=== PATIENT | female | born 1950 | race Caucasian/White ===

== ENCOUNTER 2016-09-02 17:27 | Emergency (ER) | payer OTHER ==
[~2016-09-02] VITALS: Ht 162.6 cm; Wt 44.5 kg
--- NOTE | 2016-09-02 18:00 | ED GI/GU/ABDOMINAL COMPLAINT ---
See Addendum History of Present Illness General Chief Complaint: Abdominal Pain/Flank Pain Stated Complaint: SENT FROM URGENT FOR EVALOF RT FLNAK PAIN Source: patient, URGENT CARE Exam Limitations: no limitations Vital Signs & Intake/Output Vital Signs & Intake/Output Vital Signs Date Time Temp Pulse Resp B/P Pulse O2 O2 Flow FiO2 Ox Delivery Rate 09/022 98.7 90 18 117/56 96 Room Air 09/02 1847 Room Air Room Air 09/02 1752 99.8 88 22 122/58 93 Room Air Allergies Coded Allergies: NO KNOWN ALLERGIES (09/02/16) Reconcile Medications Calcium Carbonate/Vitamin D3 (Calcium 500 + D Tablet) (Unknown Strength) TABLET (Unknown Dose) PO BID SUPPLEMENT (Reported) Multivitamin (Multi-Day Vitamins) 1 EACH TABLET 1 TAB PO DAILY SUPPLEMENT ( Reported) Triage Nurses Notes Reviewed? yes ? N Is pt currently ? No Onset: Abrupt Duration: day(s): (6) Timing: recent history Severity Numbers: 10 Location: RIGHT FLANK Associated Symptoms: DRY COUGH, WEIGHT LOSS HPI: This is a 66-year-old female presents from urgent care center for chief complaint of possible pneumonia. Patient states she's not been feeling well for the past one week with a dry nonproductive cough. Also complains of right flank pain worse with movement and palpation. Denies any productive sputum fever or chills. Denies any sick contacts. She states she has not been eating or drinking because she doesn't feel well. Patient appears very cachectic states she has lost about 8 pounds in the last 1 week. She has no primary care doctor. They sent her in from the urgent care with the x-ray done which showed possible pneumonia however they couldn't exclude underlying mass. (RHONDA RIZVI MD) Past History Travel History Traveled to [place] past 21 day No Medical History Any Pertinent Medical History? none Surgical History Surgical History: non-contributory Psychosocial History What is your primary language [place] Family History Hx Contributory? No (RHONDA RIZVI MD) Review of Systems Review of Systems Constitutional: Reports: malaise, weakness, unexplained weight loss. Denies: chills, fever. EENTM: Reports: no symptoms. Respiratory: Reports: cough, sputum production. Denies: short of breath. Cardiovascular: Reports: chest pain. GI: Reports: see HPI (FLANK PAIN). Genitourinary: Reports: no symptoms. Musculoskeletal: Reports: no symptoms. Skin: Reports: no symptoms. Neurological/Psychological: Reports: no symptoms. Hematologic/Endocrine: Denies: bruising, bleeding, polyuria, polydipsia. Immunologic/Allergic: Denies: splenectomy. All Other Systems: Reviewed and Negative (RHONDA RIZVI MD) Physical Exam Physical Exam General Appearance: alert, awake, cachetic, thin Head: atraumatic, normal appearance Eyes: Bilateral: other (SUNKEN EYES). Ears, Nose, Throat, Mouth: hearing grossly normal, DRY MUCUS MEMBRANES Neck: normal inspection, supple, full range of motion Respiratory: normal breath sounds, decreased breath sounds (RIGHT BASE) Cardiovascular: regular rate/rhythm Peripheral Pulses: 2+ radial (R), 2+ radial (L) Gastrointestinal: soft, non-tender Extremities: normal range of motion Neurologic/Psych: no motor/sensory deficits, awake, alert, oriented x 3, normal gait, normal mood/affect Skin: intact, normal color, warm/dry Core Measures ACS in differential dx? No Severe Sepsis Present: No Septic Shock Present: No (RHONDA RIZVI MD) Progress Differential Diagnosis: PNA, LUNG MASS, PE Plan of Care: Orders Procedure Date/time Status EKG 09/03 0500 Active TROPONIN LEVEL 09/03 0005 Active BASIC METABOLIC PANEL 09/03 0005 Active BLOOD CULTURE 09/02 175 Active URINALYSIS 09/02 175 Complete THYROID STIMULATING HORMONE 09/02 175 Complete MAGNESIUM 09/02 175 Complete LACTIC ACID 09/02 175 Complete FREE T4 09/02 175 Complete D-DIMER 09/02 175 Complete COMPREHENSIVE METABOLIC PANEL 09/02 175 Complete CBC WITHOUT DIFFERENTIAL 09/02 1757 Complete EKG 09/02 175 Active Laboratory Tests 09/02/16 2310: Urine Color YEL, Urine Clarity CLEAR, Urine pH 6.5, Ur Specific Foster <= 1.005 , Urine Protein 100 H, Urine Ketones 40 H, Urine Nitrite POS H, Urine Bilirubin NEG, Urine Urobilinogen 2.0 H, Ur Leukocyte Esterase NEG, Ur Microscopic SEDIMENT EXAMINED, Urine RBC 1-3, Urine WBC 1-3 H, Ur Epithelial Cells RARE, Urine Hemoglobin MOD H, Urine Glucose NEG 09/02/162057: Lactic Acid Cancelled 09/02/16 1818: Anion Gap 13, Estimated GFR > 60, BUN/Creatinine Ratio 25.0, Glucose 112 H, Lactic Acid 1.4, Calcium 8.0 L, Magnesium 2.1, Total Bilirubin 1.4 H, AST 41 H, ALT 54 H, Alkaline Phosphatase 131 H, Total Protein 6.2 L, Albumin 3.1 L, Globulin 3.1, Albumin/Globulin Ratio 1.0 L, TSH 0.714, Free T4 1.42, D-Dimer 833 H, CBC w Diff NO MAN DIFF REQ, RBC 4.18 L, MCV 83.7, MCH 27.9, RDW 15.4 H , MPV 7.2 L, Gran % 97.2 H, Lymphocytes % 1.7 L, Monocytes % 1.0 L, Eosinophils % 0.1, Basophils % 0 L, Absolute Granulocytes 9.7 H, Absolute Lymphocytes 0.2 L, Absolute Monocytes 0.1 L, Absolute Eosinophils 0, Absolute Basophils 0, PUBS MCHC 33.3 Microbiology 09/02 1826 BLOOD: Blood Culture - RECD 09/02 1817 BLOOD: Blood Culture - RECD Diagnostic Imaging: Viewed by Me: CT Scan. Discussed w/RAD: CT Scan. Initial ED EKG: NSR Hand-Off Endorsed To: BRANT LILLY,SRIKANTH Abad Endorsed Time: 1899 Pending: CT (BELKYS LILLY,RHONDA) Radiology Impression: CHEST ANGIO/ABD-PELVIC W/IV CONTRAST... NO pe... PNEUMONIA NOTED... GALL STONE W/O INFLAMMATION... FULL REPORT BELOW. Comments: PATIENT: AMALIA SALDANA PRESENT AGE: 66 PATIENT ACCOUNT NO: [id number] : 48 LOCATION: [facility] ORDERING PHYSICIAN: RHONDA RIZVI MD SERVICE DATE: 09/02/16 EXAM TYPE: CAT - CT ABD & PELVIS W IV CONTRAST; CTA CHEST-PULMONARY EMBOLISM EXAMINATION: CTA CHEST PE STUDY CLINICAL INFORMATION: RIGHT SIDED PLEURITIC PAIN, weight loss and cachexia COMPARISON: No pertinent prior studies are available for comparison. TECHNIQUE: Prior to contrast administration, noncontrast localization images through the chest were obtained. After the administration of 125 mL of Optiray 350 nonionic IV contrast, contiguous thin slice helical images were obtained through the thorax. Reformatted MIP images in the coronal and sagittal planes were obtained at the acquisition workstation. Additional multidetector volumetric imaging was performed from the superior aspect of the liver through the pubic symphysis. Sagittal and coronal reformatted images were obtained on the technologist workstation. DLP: 396 mGy-cm. FINDINGS: CHEST: The bolus timing on this study was acceptable for visualization of the pulmonary arterial tree. There are no intraluminal pulmonary arterial filling defects present to suggest pulmonary embolism. Dense airspace consolidation is seen in the bilateral lung bases right more so than left. Diffuse air bronchograms are noted. There is a prominent subcarinal lymph node measuring up to 2.2 cm in diameter. No bulky hilar adenopathy though there is bilateral hilar prominence. The heart is normal in size. Vascular calcification seen in the coronary arteries. Tiny pericardial effusion noted. LIVER, GALLBLADDER, AND BILIARY TREE: Tiny low attenuation probable cyst in segment 6 of the liver. Otherwise the liver is normal in size, shape, and attenuation. No suspicious focal hepatic lesion or biliary ductal dilatation is present. Probable gallstone in the dependent portion of the otherwise unremarkable gallbladder. PANCREAS: Atrophic but otherwise unremarkable. SPLEEN: Unremarkable. ADRENAL GLANDS: Unremarkable. KIDNEYS AND URETERS: Tiny subcentimeter low-attenuation probable cortical cysts are incidentally noted bilaterally. Otherwise the kidneys are normal in size, shape, and attenuation. No hydronephrosis, hydroureter, or calculi seen. No perinephric stranding. BLADDER: Unremarkable. GASTROINTESTINAL TRACT: Evaluation the bowel is difficult due to the lack of significant intra-abdominal fat. There is scattered diverticulosis. I do not appreciate any definitive diverticulitis. ABDOMINAL WALL: No significant hernia is appreciated. LYMPHOVASCULAR STRUCTURES: Prominent vascular calcification seen in the aorta iliac system. 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 OSSEOUS STRUCTURES: Multilevel degenerative changes in the spine with degenerative changes in both hips but no acute bony abnormality seen. IMPRESSION: No evidence for central pulmonary emboli. The main finding of note is dense airspace consolidation in the dependent right greater than left lung bases. Infectious or inflammatory causes would be favored but this appearance is nonspecific. Prominent subcarinal lymph node is present which may be reactive in the setting of this airspace consolidation. Clinical correlation will be needed. Evaluation of bowel is somewhat difficult due to the lack of significant intra-abdominal fat. VTE: Negative DICTATED BY: LETTY TORRE MD DATE/TIME DICTATED:09/02/161934 VALVE PIPE IRRIGATOR:KARISSA DATE/TIME TRANSCRIBED:09/02/161934 CONFIDENTIAL, DO NOT COPY WITHOUT APPROPRIATE AUTHORIZATION. <Electronically signed in Other Vendor System> SIGNED BY: LETTY TORRE MD 12/12 (SRIKANTH GUO MD) Departure Departure Disposition: STILL A PATIENT Condition: Stable Clinical Impression Primary Impression: Flank pain Secondary Impressions: Hypokalemia Referrals: PATIENT HAS NO PRIMARY CARE DR (PCP/Family) Departure Forms: Customer Survey General Discharge Information (RHONDA RIZVI MD) Departure Comments 09/02/16, 22:31..discussed withfamily... she would like togo home... willreplete lytes, give iv abx. PA/UTILITY OPERATOR Co-Sign Statement Statement: ED Attending supervision documentation- [] I saw and evaluated the patient. I have also reviewed all the pertinent lab results and diagnostic results. I agree with the findings and the plan of care as documented in the PA's/UTILITY OPERATOR's documentation. [x] I have reviewed the ED Record and agree with the PA's/UTILITY OPERATOR's documentation. [] Additions or exceptions (if any) to the PAs/UTILITY OPERATOR's note and plan are summarized below: [] (BRANT LILLY,SRIKANTH Abad) (RHONDA RIZVI MD) Departure Comments 09/02/16, 22:31..discussed withfamily... she would like togo home... willreplete lytes, give iv abx. (SRIKANTH GUO MD)
[2016-09-02] MEDS ORDERED: CALCIUM 500 +1 EAC5 PO (18:13)
[2016-09-02] MEDS ORDERED: MULTI-DAY VITA1 EACH PO (18:13)
[2016-09-02 18:37] LABS: ABSOLUTE BASOPHIL COUNT 0 /CUMM (0.0-0.2); ABSOLUTE EOSINOPHIL COUNT 0 /CUMM (0.0-0.7); ABSOLUTE GRANULOCYTE CT 9.7 /CUMM (1.4-6.5); ABSOLUTE LYMPH COUNT 0.2 /CUMM (1.2-3.4); ABSOLUTE MONOCYTE COUNT 0.1 /CUMM (0.10-0.60); BASOPHIL % 0 % (0.0-2.0); EOSINOPHIL % 0.1 % (0-5); MEAN CORPUSCULAR HGB 27.9 PG (27.0-31.0); MEAN CORPUSCULAR HGB CONC 33.3 G/DL (33.0-37.0); MEAN CORPUSCULAR VOLUME 83.7 FL (81.0-99.0); MEAN PLATELET VOLUME 7.2 FL (7.4-10.4); PLATELET COUNT 369 /CUMM (130-400); RBC DISTRIBUTION WIDTH 15.4 % (11.5-14.5); RED BLOOD CELL CT 4.18 /CUMM (4.20-5.40)
[2016-09-02 18:39] LABS: GRANULOCYTE % 97.2 % (42.2-75.2)
--- NOTE | 2016-09-02 19:50 | CT SCAN REPORT ---
EXAMINATION: CTA CHEST PE STUDY CLINICAL INFORMATION: RIGHT SIDED PLEURITIC PAIN, weight loss and cachexia COMPARISON: No pertinent prior studies are available for comparison. TECHNIQUE: Prior to contrast administration, noncontrast localization images through the chest were obtained. After the administration of 125 mL of Optiray 350 nonionic IV contrast, contiguous thin slice helical images were obtained through the thorax. Reformatted MIP images in the coronal and sagittal planes were obtained at the acquisition workstation. Additional multidetector volumetric imaging was performed from the superior aspect of the liver through the pubic symphysis. Sagittal and coronal reformatted images were obtained on the technologist workstation. DLP: 396 mGy-cm. FINDINGS: CHEST: The bolus timing on this study was acceptable for visualization of the pulmonary arterial tree. There are no intraluminal pulmonary arterial filling defects present to suggest pulmonary embolism. Dense airspace consolidation is seen in the bilateral lung bases right more so than left. Diffuse air bronchograms are noted. There is a prominent subcarinal lymph node measuring up to 2.2 cm in diameter. No bulky hilar adenopathy though there is bilateral hilar prominence. The heart is normal in size. Vascular calcification seen in the coronary arteries. Tiny pericardial effusion noted. LIVER, GALLBLADDER, AND BILIARY TREE: Tiny low attenuation probable cyst in segment 6 of the liver. Otherwise the liver is normal in size, shape, and attenuation. No suspicious focal hepatic lesion or biliary ductal dilatation is present. Probable gallstone in the dependent portion of the otherwise unremarkable gallbladder. PANCREAS: Atrophic but otherwise unremarkable. SPLEEN: Unremarkable. ADRENAL GLANDS: Unremarkable. KIDNEYS AND URETERS: Tiny subcentimeter low-attenuation probable cortical cysts are incidentally noted bilaterally. Otherwise the kidneys are normal in size, shape, and attenuation. No hydronephrosis, hydroureter, or calculi seen. No perinephric stranding. BLADDER: Unremarkable. GASTROINTESTINAL TRACT: Evaluation the bowel is difficult due to the lack of significant intra-abdominal fat. There is scattered diverticulosis. I do not appreciate any definitive diverticulitis. ABDOMINAL WALL: No significant hernia is appreciated. LYMPHOVASCULAR STRUCTURES: Prominent vascular calcification seen in the aorta iliac system. 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 OSSEOUS STRUCTURES: Multilevel degenerative changes in the spine with degenerative changes in both hips but no acute bony abnormality seen. IMPRESSION: No evidence for central pulmonary emboli. The main finding of note is dense airspace consolidation in the dependent right greater than left lung bases. Infectious or inflammatory causes would be favored but this appearance is nonspecific. Prominent subcarinal lymph node is present which may be reactive in the setting of this airspace consolidation. Clinical correlation will be needed. Evaluation of bowel is somewhat difficult due to the lack of significant intra-abdominal fat. VTE: Negative
[2016-09-03] MEDS ORDERED: LEVAQUIN500 M1 PO (02:24)
[2016-09-03] MEDS ORDERED: PROMETHAZINE-C118 ML PO (02:28)
[2016-09-03] MEDS ORDERED: TESSALON PERLE100 M1 PO (02:28)
[2016-09-03 02:44] VITALS: BP 105/59
== END 2016-09-03 02:46 ==
LOC: ERH 17:27
PROVIDERS: Emergency Medicine
DX: E87.6 Hypokalemia (principal); R10.31 Right lower quadrant pain; R05 Cough; R53.81 Other malaise; R53.1 Weakness; R63.4 Abnormal weight loss
CPT/HCPCS: 74177; 81001; 87040; 93005; 93010; 96374; 96375; J0696